=== PATIENT | female | born 1955 | race Caucasian/White ===

== ENCOUNTER → 2020-12-02 09:07 | Outpatient (BNVA) | payer BC, SELFPAY | PROVIDERS: Family Provider Nurse Practitioner Family; PCP Nurse Practitioner Family; Visit Provider Obstetrics & Gynecology | DX: Z12.4 Encounter for screening for malignant neoplasm of cervix (principal); L28.0 Lichen simplex chronicus; N85.2 Hypertrophy of uterus | CPT/HCPCS: 88175 ==

== ENCOUNTER → 2020-12-08 10:52 | Outpatient (BNVA) | payer BC, SELFPAY | PROVIDERS: Family Provider Nurse Practitioner Family; PCP Nurse Practitioner Family; Visit Provider Obstetrics & Gynecology | DX: D25.9 Leiomyoma of uterus, unspecified (principal) | CPT/HCPCS: 76830 ==